=== PATIENT | female | born 1935 | race African-American/Black ===

== ENCOUNTER 2017-10-14 18:28 | Emergency (ER) | payer OTHER ==
[2017-10-14 18:43] VITALS: TEMP 97.7; BMI 19.5
[2017-10-14 19:02] LABS: BASO % 0.9 % (0-2.0); EOS % 1.2 % (0-4.5); HEMATOCRIT 36.1 % (32.4-45.2); HEMOGLOBIN 11.8 GM/dL (10.7-15.3); LYMPH % 27.6 % (8-40); MCHC 32.7 g/dl (32.0-36.0); MEAN CELL VOLUME 91.7 fl (80-96); MEAN PLT VOLUME 8.7 fl (7.5-11.1); MONO % 4.9 % (3.8-10.2); NEUT % 65.4 % (42.8-82.8); PLATELET COUNT 167 K/MM3 (134-434); RBC 3.94 M/mm3 (3.60-5.2); RDW 14.6 % (11.6-15.6); WHITE BLOOD COUNT 7.1 K/mm3 (4.0-10.0)
--- NOTE | 2017-10-14 19:08 | PDOC ---
History of Present Illness - General Chief Complaint: Lightheaded Stated Complaint: WEAKNESS/DIZZINESS Time Seen by Provider: 10/14/17 19:08 - History of Present Illness Initial Comments: 10/14/17 19:12 Ms. Dhillon is an 81 yo female w/ pmh of afib (on eliquis and metoprolol), pacemaker, aortic thrombus, and HLD who presents for evaluation after presyncopal episode today in the store. Patient reports she was admitted to [facility] yesterday after she had an hour and a half long episode of left sided chest pressure, non-radiating, without pain. Was found to be in afib RVR and given 5mg iv metoprolol. 2D echo showed LVEF of 65% this morning. Patient had normal stress test this AM and was discharged home. Patient is accompanied by daughter, denies any head injury or LOC during episode this morning however does endorse extreme weakness. On arrival to ER patient was AOx3 with BGM of 121 and was reportedly back to her normal self. The patient denies chest pain, shortness of breath, and headache. Denies fever, chills, nausea, vomit, diarrhea and constipation. Denies dysuria, frequency, urgency and hematuria. Allergies: Peanuts Past History - Past Medical History Allergies/Adverse Reactions: Allergies Allergy/AdvReac Type Severity Reaction Status Date / Time peanut Allergy Verified 10/14/17 18:43 Home Medications: Ambulatory Orders Apixaban [Eliquis] 2.5 mg PO BID 10/14/17 Ferrous Sulfate 325 mg PO DAILY 10/14/17 Metoprolol Succinate [Toprol Xl -] 100 mg PO DAILY 10/14/17 Rosuvastatin Calcium [Crestor] 40 mg PO HS 10/14/17 Cardiac Disorders: Yes (afib with rvr, aortic thrombus) COPD: No - Surgical History Abdominal Surgery: Yes (abdominal anuerysm) Cardiac Surgery: Yes (ppm) - Suicide/Smoking/Psychosocial Hx Smoking History: Never smoked Hx Alcohol Use: No Drug/Substance Use Hx: No Review of Systems - Review of Systems Comments:: 10/14/17 20:18 GENERAL/CONSTITUTIONAL: +Generalized weakness with lightheaded feeling as described. No fever or chills. HEAD, EYES, EARS, NOSE AND THROAT: No change in vision. No ear pain or discharge. No sore throat. CARDIOVASCULAR: No chest pain or shortness of breath RESPIRATORY: No cough, wheezing, or hemoptysis. GASTROINTESTINAL: No nausea, vomiting, diarrhea or constipation. GENITOURINARY: No dysuria, frequency, or change in urination. MUSCULOSKELETAL: No joint or muscle swelling or pain. No neck or back pain. SKIN: No rash NEUROLOGIC: No headache, vertigo, loss of consciousness, or change in strength/ sensation. ENDOCRINE: No increased thirst. No abnormal weight change HEMATOLOGIC/LYMPHATIC: No anemia, easy bleeding, or history of blood clots. ALLERGIC/IMMUNOLOGIC: No hives or skin allergy. *Physical Exam - Vital Signs Last Vital Signs Temp Pulse Resp BP Pulse Ox 97.7 F 66 28 H 118/93 100 10/14/17 18:30 10/14/17 18:30 10/14/17 18:30 10/14/17 18:30 10/14/17 18:30 - Physical Exam Comments: 10/14/17 20:19 GENERAL: Awake, alert, and fully oriented, in no acute distress HEAD: No signs of trauma, normocephalic, atraumatic EYES: PERRLA, EOMI, sclera anicteric, conjunctiva clear ENT: Auricles normal inspection, hearing grossly normal, nares patent, oropharynx clear without exudates. Moist mucosa NECK: Normal ROM, supple, no lymphadenopathy, JVD, or masses LUNGS: No distress, speaks full sentences, clear to auscultation bilaterally HEART: Regular rate and rhythm, normal S1 and S2, no murmurs, rubs or gallops, peripheral pulses normal and equal bilaterally. ABDOMEN: Soft, nontender, normoactive bowel sounds. No guarding, no rebound. No masses EXTREMITIES: Normal inspection, Normal range of motion, no edema. No clubbing or cyanosis. NEUROLOGICAL: Cranial nerves II through XII grossly intact. Normal speech, normal gait, no focal sensorimotor deficits SKIN: Warm, Dry, normal turgor, no rashes or lesions noted. ED Treatment Course - LABORATORY CBC & Chemistry Diagram: 10/14/17 18:30 10/14/17 18:30 Medical Decision Making - Medical Decision Making 10/14/17 20:19 Ms. Dhillon is an 81 yo female w/ pmh as described who presents for evaluation after presyncopal episode. Cardiac workup started. CXR non-concerning. Patient currently able to ambulate without difficulty. Patient elected to sign out AMA from hospital and will follow-up with [facility] tomorrow for further evaluation. *DC/Admit/Observation/Transfer Diagnosis at time of Disposition: Pre-syncope - Discharge Dispostion Disposition: AGAINST MEDICAL ADVICE - Referrals - Patient Instructions Printed Discharge Instructions: DI for Syncope in Adults (Fainting) Additional Instructions: You have elected to AMA from the hospital after presenting for a near-syncopal episode. Please return to ER if any return of dizziness, altered mental status, weakness, or other concerning symptoms. Follow-up with [facility] tomorrow as discussed for further evaluation. We hope you feel better soon! - Post Discharge Activity
[2017-10-14 19:27] LABS: INR 1.15 (0.82-1.09)
[2017-10-14 19:36] LABS: ALBUMIN 3.6 g/dl (3.4-5.0); ANION GAP 8 (8-16); BLOOD UREA NITROGEN 26 mg/dL (7-18); CHLORIDE 110 mmol/L (98-107); CO2 24 mmol/L (21-32); CREATININE 1.3 mg/dL (0.55-1.02); GLUCOSE,RANDOM 115 mg/dL (74-106); SGPT/ALT 23 U/L (12-78); SODIUM 142 mmol/L (136-145)
[2017-10-14 19:41] VITALS: BP 140/83; PULSE 64
[2017-10-14 19:46] LABS: ALK PHOS 82 U/L (45-117); BILIRUBIN,TOTAL 0.7 mg/dL (0.2-1.0); TOT PROT 6.9 g/dl (6.4-8.2)
--- NOTE | 2017-10-14 19:46 | PDOC ---
Attending Attestation - HPI HPI: 10/14/17 20:35 The patient is a 81 year old female with past medical history of Afib (on eliquis and metoprolol), pacemaker and hyperlipidemia presents to the emergency department s/p syncope episode. The patient reports she is s/p discharge from [facility], she presented to the hospital yesterday complaining of pain from the pacemaker. The patient spent the night and was discharged today morning after a stress test. Prior to going home the patient went to the [facility], where she had an episode of loss of conscious, the daughter reports she looked out of it for a moment. The patient reports she hasnt eaten much all day. The patient denies any chest pain or sob. Denies nausea, vomiting. Denies diarrhea or constipation. Denies injury to the head. Denies dysuria, hematuria, frequency or urgency to urinate. Allergies: peanuts Social history: None reported Surgical history: pacemaker and abdominal aneurysm PCP: None reported - Medical Decision Making 10/14/17 20:37 Documentation prepared by Socorro Galvez, acting as medical radiation tech for Odilia Baires MD. <Socorro Galvez - Last Filed: 10/14/17 20:35> - Resident Resident Name: Henrique Newman - ED Attending Attestation I have performed the following: I have examined & evaluated the patient, The case was reviewed & discussed with the resident, I agree w/resident's findings & plan, Exceptions are as noted - Physicial Exam PE: GENERAL: Awake, alert, and fully oriented, in no acute distress HEAD: No signs of trauma EYES: PERRLA, EOMI, sclera anicteric, conjunctiva clear ENT: Auricles normal inspection, hearing grossly normal, nares patent, oropharynx clear without exudates. Moist mucosa NECK: Normal ROM, supple, no lymphadenopathy, JVD, or masses LUNGS: Breath sounds equal, clear to auscultation bilaterally. No wheezes, and no crackles HEART: Regular rate and rhythm, normal S1 and S2, no murmurs, rubs or gallops ABDOMEN: Soft, nontender, normoactive bowel sounds. No guarding, no rebound. No masses EXTREMITIES: Normal range of motion, no edema. No clubbing or cyanosis. No cords, erythema, or tenderness NEUROLOGICAL: Cranial nerves II through XII grossly intact. Normal speech, normal gait SKIN: Warm, Dry, normal turgor, no rashes or lesions noted. +Scar to L upper chest wall. - Medical Decision Making Pt with near syncope shortly after discharged from [facility]. She states she hadn't eaten anything but a turkey sandwich in the morning. She had a negative stress test this morning. While her symptoms may be due to low blood sugar, cannot rule out a cardiac cause. This was discussed with patient- we recommended at least an obs stay in the hospital, however, she was adamant that she did not want to stay. Discussed risks of leaving AMA, she wishes to depart and f/u with her sub master. <Odiila Baires - Last Filed: 10/15/17 16:46>
[2017-10-14 19:53] LABS: SGOT/AST 29 U/L (15-37)
--- NOTE | 2017-10-15 13:28 | EKG ---
Test Reason : Blood Pressure : / mmHG Vent. Rate : 063 BPM Atrial Rate : 063 BPM P-R Int : 202 ms QRS Dur : 080 ms QT Int : 434 ms P-R-T Axes : 094 048 040 degrees QTc Int : 444 ms Atrial-paced rhythm WITH OCCASIONAL PREMATURE VENTRICULAR COMPLEXES ABNORMAL ECG NO PREVIOUS ECGS AVAILABLE Confirmed by NIMESH BARFIELD MD ([id number]) on 10/15/2017 1:27:58 PM Referred By: Confirmed By:NIMESH BARFIELD MD
== END 2017-10-14 21:08 | disposition left against medical advice (07) ==
LOC: JER 18:28
DX: R55 Syncope and collapse (principal); I48.91 Unspecified atrial fibrillation; Z95.0 Presence of cardiac pacemaker; I82.90 Acute embolism and thrombosis of unspecified vein; E78.5 Hyperlipidemia, unspecified
CPT/HCPCS: 36415; 71045-TC-FY; 80053; 82550; 82962; 84443; 84484; 85025; 85610; 93005; 93010; 99282-25